=== PATIENT | male | born 1950 | race Caucasian/White ===

== ENCOUNTER 2017-08-03 02:05 | Emergency (ER) | payer SELFPAY ==
[~2017-08-03] VITALS: Ht 180.3 cm; Wt 86.4 kg
[2017-08-03] MEDS ORDERED: DiphenhydrAMINE HCL 25 MG CAPSULE PO ONE (04:45)
[2017-08-03] MEDS ORDERED: AmLODIPine BESYLATE 5 MG TABLET PO ONE ×2 (04:45→06:00)
[2017-08-03 06:01] VITALS: BP 148/80
== END 2017-08-03 06:29 | disposition home or self-care (01) ==
LOC: EMS 02:07
DX: M79.604 Pain in right leg (principal); M79.605 Pain in left leg; G89.29 Other chronic pain; I10 Essential (primary) hypertension; Z59.0 Homelessness
CPT/HCPCS: 99284

== ENCOUNTER 2017-08-03 16:46 | Inpatient (IN) | payer MEDICARE ==
[~2017-08-03] VITALS: Ht 180.3 cm; Wt 104.5 kg
[2017-08-03 17:59] LABS: BASOPHILS % (AUTO) 0.7 % (0.0-2.0); EOSINOPHILS % (AUTO) 4.6 % (1.0-6.0); HEMATOCRIT 40.4 % (41-53); HEMOGLOBIN 13.6 g/dL (13.5-17.5); LYMPHOCYTES # (AUTO) 1.3 K/uL (1.0-4.8); LYMPHOCYTES % (AUTO) 23.3 % (22.0-44.0); MEAN CORPUSCULAR HEMOGLOBIN 31.3 pg (26.0-34.0); MEAN CORPUSCULAR HGB CONC 33.6 G/dL (31.0-37.0); MEAN CORPUSCULAR VOLUME 93 fL (80-100); MONOCYTES # (AUTO) 0.6 K/uL (0.1-1.0); MONOCYTES % (AUTO) 10.6 % (2.0-9.0); NEUTROPHILS # (AUTO) 3.4 K/uL (1.8-7.7); NEUTROPHILS % (AUTO) 60.8 % (40.0-70.0); PLATELET COUNT (AUTO) 187 K/uL (150-450); RED BLOOD CELL COUNT(AUTO) 4.34 MIL/uL (4.50-5.90); RED CELL DISTRIBUTION WIDTH 13.6 % (11.5-14.5)
[2017-08-03 18:08] LABS: ANION GAP 9 mmol/L (8-16); CALCIUM, TOTAL 9.4 mg/dL (8.8-10.5); CARBON DIOXIDE 30 mmol/L (22-29); CHLORIDE 106 mmol/L (98-107); CREATININE 0.81 mg/dL (0.60-1.30); GLOMERULAR FILTR. RATE CALC > 60 mL/min (>60); GLUCOSE,RANDOM 88 mg/dL (70-110); POTASSIUM 4.1 mmol/L (3.5-5.1); SODIUM SERUM 145 mmol/L (136-145); UREA NITROGEN, BLOOD 25 mg/dL (7-18)
[2017-08-03 18:13] LABS: ALANINE AMINOTRANSFERASE 29 U/L (12-78); ALBUMIN 3.8 g/dL (3.4-5.0); ALKALINE PHOSPHATASE 64 U/L (46-116); ASPARTATE AMINOTRANSFERASE 34 U/L (15-37); BILIRUBIN,TOTAL 0.8 mg/dL (0.1-1.0); TOTAL PROTEIN, SERUM 7.4 g/dL (6.4-8.2)
[2017-08-03] MEDS ORDERED: PERMETHRIN 5% 60 GM CREAM TP ONE (18:45)
[2017-08-03] MEDS ORDERED: HALOPERIDOL 5 MG TABLET PO PRN (19:00)
[2017-08-03] MEDS ORDERED: ZOLPIDEM TARTRATE 10 MG TABLET PO PRN (19:00)
[2017-08-03] MEDS ORDERED: LORazepam 2 MG TABLET PO PRN (19:00)
[2017-08-03 21:00] VITALS: BP 153/87
[2017-08-04 06:50] VITALS: BP 140/84
[2017-08-04 08:47] VITALS: BP 152/95
[2017-08-04] MEDS: ESCITALOPRAM OXALATE 10 MG TABLET PO SCH (10:55)
[2017-08-04] MEDS: CloNIDine HCL 0.1 MG TABLET PO SCH (16:40)
[2017-08-04 21:29] VITALS: BP 157/90
[2017-08-05 08:00] VITALS: BP 153/79
[2017-08-05] MEDS: CloNIDine HCL 0.1 MG TABLET PO SCH ×2 (08:54→16:39)
[2017-08-05] MEDS: ESCITALOPRAM OXALATE 10 MG TABLET PO SCH (08:54)
[2017-08-05 20:05] VITALS: BP 148/74
[2017-08-06 08:30] VITALS: BP 145/82
[2017-08-06] MEDS: CloNIDine HCL 0.1 MG TABLET PO SCH ×2 (09:00→16:08)
[2017-08-06] MEDS: ESCITALOPRAM OXALATE 10 MG TABLET PO SCH (09:00)
[2017-08-07] MEDS: ESCITALOPRAM OXALATE 10 MG TABLET PO SCH (08:51)
[2017-08-07] MEDS: CloNIDine HCL 0.1 MG TABLET PO SCH ×2 (08:52→17:35)
[2017-08-07 09:22] VITALS: BP 146/96
[2017-08-07 20:46] VITALS: BP 147/93
[2017-08-08] MEDS: ESCITALOPRAM OXALATE 10 MG TABLET PO SCH (08:17)
[2017-08-08] MEDS: CloNIDine HCL 0.1 MG TABLET PO SCH ×2 (08:18→16:15)
[2017-08-08 08:30] VITALS: BP 128/68
[2017-08-08 17:00] VITALS: BP 145/85
[2017-08-09 05:18] VITALS: BP 139/100
[2017-08-09 08:27] VITALS: BP 144/80
[2017-08-09] MEDS: ESCITALOPRAM OXALATE 10 MG TABLET PO SCH (09:06)
[2017-08-09] MEDS: CloNIDine HCL 0.1 MG TABLET PO SCH ×2 (09:06→17:03)
[2017-08-09 16:49] VITALS: BP 128/72
[2017-08-10 08:26] VITALS: BP 125/73
[2017-08-10] MEDS: CloNIDine HCL 0.1 MG TABLET PO SCH ×2 (08:28→16:52)
[2017-08-10] MEDS: ESCITALOPRAM OXALATE 10 MG TABLET PO SCH (08:28)
[2017-08-10 16:43] VITALS: BP 121/73
[2017-08-11] MEDS: CloNIDine HCL 0.1 MG TABLET PO SCH (09:16)
[2017-08-11] MEDS: ESCITALOPRAM OXALATE 10 MG TABLET PO SCH (09:17)
[2017-08-11] MEDS ORDERED: ESCI10TA PO (10:08)
[2017-08-11] MEDS ORDERED: CLON-570 PO (10:09)
[2017-08-11 10:22] VITALS: BP 136/94
== END 2017-08-11 14:35 | disposition home or self-care (01) | DRG 885 ==
LOC: EMS 16:47 → 3EI 19:53
PROVIDERS: ADMIT Psychiatry & Neurology Psychiatry; ATTEND Psychiatry & Neurology Child & Adolescent Psychiatry
DX: F33.9 Major depressive disorder, recurrent, unspecified (principal); F41.9 Anxiety disorder, unspecified; I10 Essential (primary) hypertension; L72.3 Sebaceous cyst; R21 Rash and other nonspecific skin eruption
CPT/HCPCS: 99285; G0480

== ENCOUNTER 2017-08-28 11:32 | Inpatient (IN) | payer MEDICARE ==
[~2017-08-28] VITALS: Ht 180.3 cm; Wt 97.5 kg
[~2017-08-28 11:32] MED LIST: CLON-570 PO; ESCI10TA PO
[2017-08-28 11:55] VITALS: BP 110/70
[2017-08-28] MEDS ORDERED: HALOPERIDOL 5 MG TABLET PO PRN (12:45)
[2017-08-28 16:43] VITALS: BP 139/86
[2017-08-28] MEDS ORDERED: PNEUMOCOCCAL VACCINE POLYVALENT 0.5 ML VIAL [PPSV23] IM ONE (16:45)
[2017-08-28] MEDS ORDERED: QUEtiapine FUMARATE 25 MG TABLET PO SCH (21:00)
[2017-08-29 02:25] VITALS: BP 128/78
[2017-08-29] MEDS: ESCITALOPRAM OXALATE 20 MG TABLET PO SCH (08:32)
[2017-08-29 08:37] VITALS: BP 129/72
[2017-08-29 09:34] LABS: BASOPHILS % (AUTO) 0.8 % (0.0-2.0); EOSINOPHILS % (AUTO) 4.2 % (1.0-6.0); HEMATOCRIT 40.7 % (41-53); LYMPHOCYTES # (AUTO) 1.1 K/uL (1.0-4.8); LYMPHOCYTES % (AUTO) 29.8 % (22.0-44.0); MEAN CORPUSCULAR HEMOGLOBIN 31.7 pg (26.0-34.0); MEAN CORPUSCULAR HGB CONC 34.3 G/dL (31.0-37.0); MEAN CORPUSCULAR VOLUME 92 fL (80-100); MONOCYTES # (AUTO) 0.4 K/uL (0.1-1.0); MONOCYTES % (AUTO) 11.2 % (2.0-9.0); NEUTROPHILS # (AUTO) 2.1 K/uL (1.8-7.7); PLATELET COUNT (AUTO) 114 K/uL (150-450); RED BLOOD CELL COUNT(AUTO) 4.41 MIL/uL (4.50-5.90); RED CELL DISTRIBUTION WIDTH 13.1 % (11.5-14.5)
[2017-08-29 09:54] LABS: ALANINE AMINOTRANSFERASE 18 U/L (12-78); ALBUMIN 3.4 g/dL (3.4-5.0); ALKALINE PHOSPHATASE 47 U/L (46-116); ANION GAP 3 mmol/L (8-16); ASPARTATE AMINOTRANSFERASE 15 U/L (15-37); BILIRUBIN,TOTAL 0.5 mg/dL (0.1-1.0); CALCIUM, TOTAL 8.6 mg/dL (8.8-10.5); CARBON DIOXIDE 32 mmol/L (22-29); CHLORIDE 109 mmol/L (98-107); CHOL/HDL RATIO 3.5 (4.2-7.3); CHOLESTEROL 156 mg/dL (131-200); CREATININE 0.91 mg/dL (0.60-1.30); FREE T4 (FREE THYROXINE) 0.89 ng/dL (0.76-1.46); GLOMERULAR FILTR. RATE CALC > 60 mL/min (>60); GLUCOSE,RANDOM 79 mg/dL (70-110); HDL CHOLESTEROL 44 mg/dL (40-60); LDL CHOL (CALC.) 101 mg/dL (0-130); POTASSIUM 4.2 mmol/L (3.5-5.1); SODIUM SERUM 144 mmol/L (136-145); THYROID STIMULATING HORMONE 0.83 uIU/mL (0.36-3.74); TOTAL PROTEIN, SERUM 6.2 g/dL (6.4-8.2); TRIGLYCERIDES 57 mg/dL (15-150); UREA NITROGEN, BLOOD 17 mg/dL (7-18)
[2017-08-29 16:12] VITALS: BP 137/78
[2017-08-29] MEDS ORDERED: QUEtiapine FUMARATE 200 MG TABLET PO SCH (21:00)
[2017-08-30 00:10] VITALS: BP 115/60
[2017-08-30 08:14] VITALS: BP 142/78
[2017-08-30] MEDS: ESCITALOPRAM OXALATE 20 MG TABLET PO SCH (08:26)
[2017-08-30 16:02] VITALS: BP 124/85
[2017-08-30] MEDS: QUEtiapine FUMARATE 300 MG TABLET PO SCH (20:05)
[2017-08-31 07:08] VITALS: BP 130/90
[2017-08-31 08:02] VITALS: BP 130/78
[2017-08-31] MEDS: ESCITALOPRAM OXALATE 20 MG TABLET PO SCH (08:29)
[2017-08-31 16:04] VITALS: BP 152/93
[2017-08-31] MEDS: QUEtiapine FUMARATE 300 MG TABLET PO SCH (20:36)
[2017-09-01 00:40] VITALS: BP 108/61
[2017-09-01 08:21] VITALS: BP 121/71
[2017-09-01] MEDS: ESCITALOPRAM OXALATE 20 MG TABLET PO SCH (08:23)
[2017-09-01 16:23] VITALS: BP 135/82
[2017-09-01] MEDS: QUEtiapine FUMARATE 300 MG TABLET PO SCH (20:38)
[2017-09-02 02:11] VITALS: BP 115/70
[2017-09-02] MEDS: ESCITALOPRAM OXALATE 20 MG TABLET PO SCH (08:12)
[2017-09-02 08:20] VITALS: BP 133/85
[2017-09-02 16:14] VITALS: BP 120/84
[2017-09-02] MEDS: QUEtiapine FUMARATE 300 MG TABLET PO SCH (20:36)
[2017-09-03 01:55] VITALS: BP 118/60
[2017-09-03] MEDS: ESCITALOPRAM OXALATE 20 MG TABLET PO SCH (08:16)
[2017-09-03 08:21] VITALS: BP 120/75
[2017-09-03 16:03] VITALS: BP 123/68
[2017-09-03] MEDS: QUEtiapine FUMARATE 300 MG TABLET PO SCH (20:42)
[2017-09-04 01:24] VITALS: BP 111/60
[2017-09-04 07:37] VITALS: BP 135/81
[2017-09-04] MEDS: ESCITALOPRAM OXALATE 20 MG TABLET PO SCH (08:18)
[2017-09-04 08:21] VITALS: BP 135/81
[2017-09-04 16:27] VITALS: BP 138/84
[2017-09-04] MEDS: QUEtiapine FUMARATE 300 MG TABLET PO SCH (20:36)
[2017-09-05 07:06] VITALS: BP 130/86
[2017-09-05 08:29] VITALS: BP 137/67
[2017-09-05] MEDS: ESCITALOPRAM OXALATE 20 MG TABLET PO SCH (08:31)
[2017-09-05 16:14] VITALS: BP 135/84
[2017-09-05] MEDS: QUEtiapine FUMARATE 300 MG TABLET PO SCH (20:38)
[2017-09-06 05:15] VITALS: BP 130/81
[2017-09-06 08:05] VITALS: BP 132/76
[2017-09-06] MEDS: ESCITALOPRAM OXALATE 20 MG TABLET PO SCH (08:20)
[2017-09-06 16:02] VITALS: BP 135/89
[2017-09-06] MEDS: QUEtiapine FUMARATE 300 MG TABLET PO SCH (20:32)
[2017-09-06] MEDS: ZOLPIDEM TARTRATE 10 MG TABLET PO PRN (21:38)
[2017-09-07 06:14] VITALS: BP 134/62
[2017-09-07 08:22] VITALS: BP 124/63
[2017-09-07] MEDS: ESCITALOPRAM OXALATE 20 MG TABLET PO SCH (08:28)
[2017-09-07 16:07] VITALS: BP 113/70
[2017-09-07] MEDS: QUEtiapine FUMARATE 300 MG TABLET PO SCH (20:03)
[2017-09-07] MEDS: ZOLPIDEM TARTRATE 10 MG TABLET PO PRN (20:22)
[2017-09-08 06:18] VITALS: BP 128/81
[2017-09-08 08:29] VITALS: BP 109/60
[2017-09-08] MEDS: ESCITALOPRAM OXALATE 20 MG TABLET PO SCH (08:42)
[2017-09-08 16:02] VITALS: BP 133/87
[2017-09-08] MEDS: QUEtiapine FUMARATE 300 MG TABLET PO SCH (20:20)
[2017-09-08] MEDS: ZOLPIDEM TARTRATE 10 MG TABLET PO PRN (20:55)
[2017-09-09 04:56] VITALS: BP 128/83
[2017-09-09] MEDS: ESCITALOPRAM OXALATE 20 MG TABLET PO SCH (08:09)
[2017-09-09 08:10] VITALS: BP 133/74
[2017-09-09 16:05] VITALS: BP 114/81
[2017-09-09] MEDS: QUEtiapine FUMARATE 300 MG TABLET PO SCH (20:29)
[2017-09-09] MEDS: ZOLPIDEM TARTRATE 10 MG TABLET PO PRN (21:00)
[2017-09-10 05:54] VITALS: BP 118/62
[2017-09-10] MEDS: ESCITALOPRAM OXALATE 20 MG TABLET PO SCH (08:12)
[2017-09-10 08:58] VITALS: BP 129/74
[2017-09-10 16:46] VITALS: BP 131/85
[2017-09-10] MEDS: QUEtiapine FUMARATE 300 MG TABLET PO SCH (20:31)
[2017-09-10] MEDS: ZOLPIDEM TARTRATE 10 MG TABLET PO PRN (21:07)
[2017-09-11 07:17] VITALS: BP 144/96
[2017-09-11 08:00] VITALS: BP 133/91
[2017-09-11] MEDS: ESCITALOPRAM OXALATE 20 MG TABLET PO SCH (08:03)
[2017-09-11] MEDS: QUEtiapine FUMARATE 300 MG TABLET PO SCH ×2 (08:03→16:36)
[2017-09-11 16:10] VITALS: BP 115/76
[2017-09-12 06:29] VITALS: BP 116/77
[2017-09-12] MEDS: QUEtiapine FUMARATE 300 MG TABLET PO SCH ×2 (08:01→16:17)
[2017-09-12] MEDS: ESCITALOPRAM OXALATE 20 MG TABLET PO SCH (08:01)
[2017-09-12 08:18] VITALS: BP 143/73
[2017-09-12 16:09] VITALS: BP 123/65
[2017-09-13 00:44] VITALS: BP 120/75
[2017-09-13] MEDS: ESCITALOPRAM OXALATE 20 MG TABLET PO SCH (08:03)
[2017-09-13] MEDS: QUEtiapine FUMARATE 300 MG TABLET PO SCH ×2 (08:03→16:11)
[2017-09-13 08:16] VITALS: BP 119/87
[2017-09-13 16:07] VITALS: BP 120/80
[2017-09-13] MEDS: ZOLPIDEM TARTRATE 10 MG TABLET PO PRN (20:33)
[2017-09-14] MEDS: LORazepam 2 MG TABLET PO PRN (01:58)
[2017-09-14 02:00] VITALS: BP 134/77
[2017-09-14] MEDS: ESCITALOPRAM OXALATE 20 MG TABLET PO SCH (08:19)
[2017-09-14] MEDS: QUEtiapine FUMARATE 300 MG TABLET PO SCH ×2 (08:19→16:07)
[2017-09-14 08:27] VITALS: BP 113/71
[2017-09-14 16:06] VITALS: BP 130/76
[2017-09-15 00:07] VITALS: BP 118/68
[2017-09-15] MEDS: QUEtiapine FUMARATE 300 MG TABLET PO SCH (08:06)
[2017-09-15] MEDS: ESCITALOPRAM OXALATE 20 MG TABLET PO SCH (08:06)
[2017-09-15 08:08] VITALS: BP 136/72
[2017-09-15] MEDS ORDERED: ARIPiprazole 10 MG TABLET PO SCH (10:45)
[2017-09-15] MEDS ORDERED: ARIPiprazole 10 MG TABLET PO ONE (10:45)
[2017-09-15 16:16] VITALS: BP 127/68
[2017-09-15] MEDS ORDERED: TraZODone HCL 100 MG TABLET PO SCH (21:00)
[2017-09-16] VITALS: BP 124/89
[2017-09-16 00:01] VITALS: BP 124/89
[2017-09-16] MEDS: ZOLPIDEM TARTRATE 10 MG TABLET PO PRN (00:06)
[2017-09-16 03:42] VITALS: BP 131/88
[2017-09-16] MEDS: LORazepam 2 MG TABLET PO PRN (03:52)
[2017-09-16] MEDS: ESCITALOPRAM OXALATE 20 MG TABLET PO SCH (08:09)
[2017-09-16] MEDS: ARIPiprazole 10 MG TABLET PO SCH (08:09)
[2017-09-16 08:29] VITALS: BP 129/73
[2017-09-16 16:02] VITALS: BP 130/86
[2017-09-16] MEDS: TraZODone HCL 100 MG TABLET PO SCH (20:06)
[2017-09-17 04:04] VITALS: BP 136/84
[2017-09-17 08:00] VITALS: BP 123/76
[2017-09-17] MEDS: ARIPiprazole 10 MG TABLET PO SCH (08:01)
[2017-09-17] MEDS: ESCITALOPRAM OXALATE 20 MG TABLET PO SCH (08:01)
[2017-09-17] MEDS ORDERED: ARIPiprazole LAUROXIL ER SUSPENSION 882 MG/3.2 ML SYRINGE IM SCH (09:00)
[2017-09-17 16:02] VITALS: BP 124/64
[2017-09-17] MEDS: TraZODone HCL 100 MG TABLET PO SCH (20:45)
[2017-09-18 01:35] VITALS: BP 103/69
[2017-09-18] MEDS: ARIPiprazole 10 MG TABLET PO SCH (08:05)
[2017-09-18] MEDS: ESCITALOPRAM OXALATE 20 MG TABLET PO SCH (08:05)
[2017-09-18 08:09] VITALS: BP 123/85
[2017-09-18 16:02] VITALS: BP 129/67
[2017-09-18] MEDS: TraZODone HCL 100 MG TABLET PO SCH (20:43)
[2017-09-19 00:15] VITALS: BP 107/72
[2017-09-19] MEDS: ZOLPIDEM TARTRATE 10 MG TABLET PO PRN (01:27)
[2017-09-19] MEDS: ESCITALOPRAM OXALATE 20 MG TABLET PO SCH (08:05)
[2017-09-19] MEDS: ARIPiprazole 10 MG TABLET PO SCH (08:05)
[2017-09-19 08:23] VITALS: BP 127/76
[2017-09-19] MEDS ORDERED: ARIP882S IM (10:26)
[2017-09-19] MEDS ORDERED: TRAZ-147 PO (10:26)
[2017-09-19] MEDS ORDERED: ARIP10TA8 PO (10:26)
== END 2017-09-19 11:50 | disposition home or self-care (01) | DRG 885 ==
LOC: B2X 12:46
PROVIDERS: ADMIT Psychiatry & Neurology Psychiatry; ATTEND Psychiatry & Neurology Psychiatry
DX: F33.2 Major depressive disorder, recurrent severe without psychotic features (principal); R45.851 Suicidal ideations; Z28.21 Immunization not carried out because of patient refusal; I10 Essential (primary) hypertension; L72.3 Sebaceous cyst; F60.3 Borderline personality disorder; F41.9 Anxiety disorder, unspecified; E66.3 Overweight; Z63.9 Problem related to primary support group, unspecified; Z59.9 Problem related to housing and economic circumstances, unspecified; Z79.899 Other long term (current) drug therapy; Z91.5 Personal history of self-harm; Z68.30 Body mass index [BMI] 30.0-30.9, adult
CPT/HCPCS: 83036; 84439; 84443; 87081

== ENCOUNTER 2017-09-22 10:34 | Inpatient (IN) | payer MEDICARE ==
[~2017-09-22] VITALS: Ht 180.3 cm; Wt 98.7 kg
[~2017-09-22 10:34] MED LIST changes: +ARIP10TA8 PO; +ARIP882S IM; +ARIPiprazole 10 MG TABLET PO SCH; -CLON-570 PO; +TRAZ-147 PO
[2017-09-22] MEDS ORDERED: ESCI20TA PO (12:01)
[2017-09-22 12:44] VITALS: BP 115/71
[2017-09-22 13:00] VITALS: BP 126/76
[2017-09-22] MEDS ORDERED: PNEUMOCOCCAL VACCINE POLYVALENT 0.5 ML VIAL [PPSV23] IM ONE (13:45)
[2017-09-22 16:12] VITALS: BP 120/78
[2017-09-22] MEDS: CloNIDine HCL 0.1 MG TABLET PO SCH (16:51)
[2017-09-22] MEDS: TraZODone HCL 100 MG TABLET PO SCH (20:28)
[2017-09-22] MEDS: ZOLPIDEM TARTRATE 10 MG TABLET PO PRN (21:07)
[2017-09-23 00:02] VITALS: BP 118/65
[2017-09-23 08:18] VITALS: BP 111/66
[2017-09-23] MEDS: CloNIDine HCL 0.1 MG TABLET PO SCH ×2 (08:21→16:31)
[2017-09-23] MEDS: ESCITALOPRAM OXALATE 20 MG TABLET PO SCH (08:21)
[2017-09-23 08:34] LABS: BASOPHILS % (AUTO) 0.6 % (0.0-2.0); EOSINOPHILS % (AUTO) 4.7 % (1.0-6.0); HEMATOCRIT 40.4 % (41-53); LYMPHOCYTES # (AUTO) 1.2 K/uL (1.0-4.8); LYMPHOCYTES % (AUTO) 25.2 % (22.0-44.0); MEAN CORPUSCULAR HEMOGLOBIN 32.2 pg (26.0-34.0); MEAN CORPUSCULAR HGB CONC 34.7 G/dL (31.0-37.0); MEAN CORPUSCULAR VOLUME 93 fL (80-100); MONOCYTES # (AUTO) 0.5 K/uL (0.1-1.0); MONOCYTES % (AUTO) 10.4 % (2.0-9.0); NEUTROPHILS # (AUTO) 2.8 K/uL (1.8-7.7); NEUTROPHILS % (AUTO) 59.1 % (40.0-70.0); PLATELET COUNT (AUTO) 170 K/uL (150-450); RED BLOOD CELL COUNT(AUTO) 4.36 MIL/uL (4.50-5.90); RED CELL DISTRIBUTION WIDTH 13.8 % (11.5-14.5)
[2017-09-23 09:17] LABS: ALANINE AMINOTRANSFERASE 27 U/L (12-78); ALBUMIN 3.4 g/dL (3.4-5.0); ALKALINE PHOSPHATASE 64 U/L (46-116); ANION GAP 2 mmol/L (8-16); ASPARTATE AMINOTRANSFERASE 27 U/L (15-37); BILIRUBIN,TOTAL 0.5 mg/dL (0.1-1.0); CALCIUM, TOTAL 8.9 mg/dL (8.8-10.5); CARBON DIOXIDE 34 mmol/L (22-29); CHLORIDE 109 mmol/L (98-107); CHOL/HDL RATIO 3.3 (4.2-7.3); CHOLESTEROL 139 mg/dL (131-200); CREATININE 0.76 mg/dL (0.60-1.30); FREE T4 (FREE THYROXINE) 0.85 ng/dL (0.76-1.46); GLOMERULAR FILTR. RATE CALC > 60 mL/min (>60); GLUCOSE,RANDOM 84 mg/dL (70-110); HDL CHOLESTEROL 42 mg/dL (40-60); LDL CHOL (CALC.) 81 mg/dL (0-130); POTASSIUM 4.8 mmol/L (3.5-5.1); SODIUM SERUM 145 mmol/L (136-145); THYROID STIMULATING HORMONE 2.48 uIU/mL (0.36-3.74); TOTAL PROTEIN, SERUM 6.4 g/dL (6.4-8.2); TRIGLYCERIDES 80 mg/dL (15-150); UREA NITROGEN, BLOOD 17 mg/dL (7-18)
[2017-09-23 16:05] VITALS: BP 138/73
[2017-09-23] MEDS: TraZODone HCL 100 MG TABLET PO SCH (20:39)
[2017-09-23] MEDS: ZOLPIDEM TARTRATE 10 MG TABLET PO PRN (21:16)
[2017-09-24 01:54] VITALS: BP 120/64
[2017-09-24] MEDS: CloNIDine HCL 0.1 MG TABLET PO SCH ×2 (08:03→16:34)
[2017-09-24] MEDS: ESCITALOPRAM OXALATE 20 MG TABLET PO SCH (08:03)
[2017-09-24 08:09] VITALS: BP 142/72
[2017-09-24 16:10] VITALS: BP 131/82
[2017-09-24] MEDS: TraZODone HCL 100 MG TABLET PO SCH (20:34)
[2017-09-24] MEDS: ZOLPIDEM TARTRATE 10 MG TABLET PO PRN (21:11)
[2017-09-25 05:45] VITALS: BP 132/72
[2017-09-25] MEDS: ESCITALOPRAM OXALATE 20 MG TABLET PO SCH (08:19)
[2017-09-25] MEDS: CloNIDine HCL 0.1 MG TABLET PO SCH ×2 (08:19→16:17)
[2017-09-25 08:31] VITALS: BP 121/65
[2017-09-25 16:07] VITALS: BP 129/86
[2017-09-25] MEDS: TraZODone HCL 100 MG TABLET PO SCH (20:08)
[2017-09-25] MEDS: ZOLPIDEM TARTRATE 10 MG TABLET PO PRN (21:40)
[2017-09-25] MEDS: HALOPERIDOL 5 MG TABLET PO PRN (23:54)
[2017-09-25] MEDS: LORazepam 2 MG TABLET PO PRN (23:54)
[2017-09-26 00:35] VITALS: BP 140/84
[2017-09-26] MEDS: ESCITALOPRAM OXALATE 20 MG TABLET PO SCH (08:12)
[2017-09-26] MEDS: CloNIDine HCL 0.1 MG TABLET PO SCH ×2 (08:13→16:11)
[2017-09-26 08:16] VITALS: BP 146/88
[2017-09-26 12:36] VITALS: BP 129/76
[2017-09-26 16:02] VITALS: BP 129/74
[2017-09-26] MEDS: TraZODone HCL 100 MG TABLET PO SCH (20:03)
[2017-09-27 00:15] VITALS: BP 146/78
[2017-09-27] MEDS: LORazepam 2 MG TABLET PO PRN (00:19)
[2017-09-27] MEDS: CloNIDine HCL 0.1 MG TABLET PO SCH ×2 (08:11→16:01)
[2017-09-27] MEDS: ESCITALOPRAM OXALATE 20 MG TABLET PO SCH (08:11)
[2017-09-27 08:27] VITALS: BP 122/72
[2017-09-27] MEDS ORDERED: IBUPROFEN 600 MG TABLET PO PRN (11:00)
[2017-09-27 11:30] VITALS: BP 118/72
[2017-09-27] MEDS: ACETAMINOPHEN 325 MG TABLET PO PRN (11:30)
[2017-09-27 16:29] VITALS: BP 117/63
[2017-09-27] MEDS: TraZODone HCL 100 MG TABLET PO SCH (20:11)
[2017-09-28 05:22] VITALS: BP 131/81
[2017-09-28] MEDS: ESCITALOPRAM OXALATE 20 MG TABLET PO SCH (08:02)
[2017-09-28] MEDS: CloNIDine HCL 0.1 MG TABLET PO SCH ×2 (08:02→16:13)
[2017-09-28 08:31] VITALS: BP 124/82
[2017-09-28 16:16] VITALS: BP 119/62
[2017-09-28] MEDS: TraZODone HCL 100 MG TABLET PO SCH (20:10)
[2017-09-29 03:22] VITALS: BP 125/75
[2017-09-29] MEDS: LORazepam 2 MG TABLET PO PRN ×2 (03:24→21:22)
[2017-09-29 08:00] VITALS: BP 125/74
[2017-09-29] MEDS: ESCITALOPRAM OXALATE 20 MG TABLET PO SCH (08:08)
[2017-09-29] MEDS: CloNIDine HCL 0.1 MG TABLET PO SCH ×2 (08:08→16:35)
[2017-09-29 12:48] VITALS: BP 122/70
[2017-09-29] MEDS: ACETAMINOPHEN 325 MG TABLET PO PRN (12:48)
[2017-09-29 16:18] VITALS: BP_SYST 104; BP_SYST 134; BP_DIAS 64; BP_DIAS 68
[2017-09-29] MEDS: TraZODone HCL 100 MG TABLET PO SCH (20:34)
[2017-09-30 00:05] VITALS: BP 130/71
[2017-09-30] MEDS: CloNIDine HCL 0.1 MG TABLET PO SCH ×2 (08:21→16:33)
[2017-09-30] MEDS: ESCITALOPRAM OXALATE 20 MG TABLET PO SCH (08:21)
[2017-09-30 08:22] VITALS: BP 127/60
[2017-09-30 10:05] VITALS: BP 120/62
[2017-09-30] MEDS: ACETAMINOPHEN 325 MG TABLET PO PRN (10:05)
[2017-09-30 16:04] VITALS: BP 136/86
[2017-09-30] MEDS: TraZODone HCL 100 MG TABLET PO SCH (20:30)
[2017-09-30] MEDS: LORazepam 2 MG TABLET PO PRN (21:08)
[2017-10-01 01:12] VITALS: BP 109/75
[2017-10-01 08:10] VITALS: BP 131/79
[2017-10-01] MEDS: ESCITALOPRAM OXALATE 20 MG TABLET PO SCH (08:38)
[2017-10-01] MEDS: CloNIDine HCL 0.1 MG TABLET PO SCH ×2 (08:38→16:30)
[2017-10-01] MEDS: ACETAMINOPHEN 325 MG TABLET PO PRN (09:22)
[2017-10-01 16:09] VITALS: BP 132/72
[2017-10-01] MEDS: TraZODone HCL 100 MG TABLET PO SCH (20:29)
[2017-10-01] MEDS: LORazepam 2 MG TABLET PO PRN (20:54)
[2017-10-02 04:10] VITALS: BP 138/83
[2017-10-02] MEDS: ESCITALOPRAM OXALATE 20 MG TABLET PO SCH (08:11)
[2017-10-02] MEDS: CloNIDine HCL 0.1 MG TABLET PO SCH ×2 (08:11→16:30)
[2017-10-02 08:16] VITALS: BP 115/67
[2017-10-02 16:09] VITALS: BP 131/85
[2017-10-02] MEDS: TraZODone HCL 100 MG TABLET PO SCH (20:32)
[2017-10-03 03:55] VITALS: BP 138/80
[2017-10-03] MEDS: ESCITALOPRAM OXALATE 20 MG TABLET PO SCH (08:12)
[2017-10-03] MEDS: CloNIDine HCL 0.1 MG TABLET PO SCH ×2 (08:12→16:27)
[2017-10-03 08:25] VITALS: BP 124/62
[2017-10-03] MEDS: ACETAMINOPHEN 325 MG TABLET PO PRN (09:30)
[2017-10-03] MEDS ORDERED: CLON-570 PO (12:40)
[2017-10-03 16:04] VITALS: BP 131/80
[2017-10-03] MEDS: TraZODone HCL 100 MG TABLET PO SCH (20:08)
[2017-10-03] MEDS: HALOPERIDOL 5 MG TABLET PO PRN (21:05)
[2017-10-04 00:05] VITALS: BP 116/68
[2017-10-04] MEDS: ESCITALOPRAM OXALATE 20 MG TABLET PO SCH (08:05)
[2017-10-04] MEDS: CloNIDine HCL 0.1 MG TABLET PO SCH ×2 (08:05→16:36)
[2017-10-04 08:21] VITALS: BP 120/75
[2017-10-04 16:03] VITALS: BP 121/69
[2017-10-04] MEDS: TraZODone HCL 100 MG TABLET PO SCH (20:37)
[2017-10-05 00:08] VITALS: BP 115/64
[2017-10-05 08:19] VITALS: BP 120/72
[2017-10-05] MEDS: ESCITALOPRAM OXALATE 20 MG TABLET PO SCH (08:21)
[2017-10-05] MEDS: CloNIDine HCL 0.1 MG TABLET PO SCH ×2 (08:21→16:36)
[2017-10-05 16:07] VITALS: BP 117/78
[2017-10-05] MEDS: TraZODone HCL 100 MG TABLET PO SCH (20:34)
[2017-10-06 03:10] VITALS: BP 100/65
[2017-10-06] MEDS: ACETAMINOPHEN 325 MG TABLET PO PRN (03:12)
[2017-10-06] MEDS: ESCITALOPRAM OXALATE 20 MG TABLET PO SCH (08:11)
[2017-10-06] MEDS: CloNIDine HCL 0.1 MG TABLET PO SCH (08:11)
[2017-10-06 08:33] VITALS: BP 124/69
== END 2017-10-06 10:00 | disposition home or self-care (01) | DRG 885 ==
LOC: B2S 12:35 → B2X 15:54
PROVIDERS: ADMIT Psychiatry & Neurology Psychiatry; ATTEND Psychiatry & Neurology Psychiatry
DX: F33.2 Major depressive disorder, recurrent severe without psychotic features (principal); R45.851 Suicidal ideations; I10 Essential (primary) hypertension; F60.3 Borderline personality disorder; L72.3 Sebaceous cyst; Z91.5 Personal history of self-harm; Z28.21 Immunization not carried out because of patient refusal; Z79.899 Other long term (current) drug therapy
CPT/HCPCS: 84439; 84443; 87081

== ENCOUNTER 2017-10-12 12:51 | Inpatient (IN) | payer MEDICARE, SELFPAY ==
[~2017-10-12] VITALS: Ht 180.3 cm; Wt 98.4 kg
[~2017-10-12 12:51] MED LIST changes: -ARIP10TA8 PO; -ARIPiprazole 10 MG TABLET PO SCH; +CLON-570 PO; -ESCI10TA PO; +ESCI20TA PO; -TRAZ-147 PO; +TRAZ-220 PO
[2017-10-12 14:48] VITALS: BP 136/71
[2017-10-12] MEDS ORDERED: HALOPERIDOL 5 MG TABLET PO PRN (15:00)
[2017-10-12] MEDS ORDERED: ZOLPIDEM TARTRATE 10 MG TABLET PO PRN (15:00)
[2017-10-12] MEDS ORDERED: LORazepam 2 MG TABLET PO PRN (15:00)
[2017-10-12 16:16] VITALS: BP 150/80
[2017-10-12] MEDS ORDERED: PETROLATUM,WHITE 71 GM JELLY TP PRN (16:30)
[2017-10-12] MEDS ORDERED: DOCUSATE SODIUM 100 MG CAPSULE PO PRN (16:30)
[2017-10-12] MEDS ORDERED: MAGNESIUM HYDROXIDE SUSPENSION 30 ML UDCUP PO PRN (16:30)
[2017-10-12] MEDS ORDERED: IBUPROFEN 400 MG TABLET PO PRN (16:30)
[2017-10-12] MEDS ORDERED: MAG HYDROX/AL HYDROX/SIMETH ES 30 ML SUSPENSION UDCUP PO PRN (16:30)
[2017-10-12] MEDS ORDERED: ONDANSETRON HCL 4 MG TABLET PO PRN (16:30)
[2017-10-12] MEDS ORDERED: ALBUTEROL SULFATE HFA 90 MCG/PUFF 8 GM INHALER IH PRN (16:30)
[2017-10-12] MEDS: CloNIDine HCL 0.1 MG TABLET PO SCH (16:49)
[2017-10-12] MEDS ORDERED: NYSTATIN 30 GM CREAM TP SCH (17:00)
[2017-10-12 18:16] VITALS: BP 113/81
[2017-10-13] MEDS ORDERED: PNEUMOCOCCAL VACCINE POLYVALENT 0.5 ML VIAL [PPSV23] IM ONE (01:15)
[2017-10-13 01:44] VITALS: BP 120/74
[2017-10-13 08:16] LABS: BASOPHILS % (AUTO) 0.7 % (0.0-2.0); EOSINOPHILS % (AUTO) 5.2 % (1.0-6.0); HEMATOCRIT 37.2 % (41-53); HEMOGLOBIN 12.9 g/dL (13.5-17.5); LYMPHOCYTES % (AUTO) 22.9 % (22.0-44.0); MEAN CORPUSCULAR HGB CONC 34.8 G/dL (31.0-37.0); MEAN CORPUSCULAR VOLUME 92 fL (80-100); MONOCYTES # (AUTO) 0.5 K/uL (0.1-1.0); MONOCYTES % (AUTO) 10.6 % (2.0-9.0); NEUTROPHILS # (AUTO) 2.8 K/uL (1.8-7.7); NEUTROPHILS % (AUTO) 60.6 % (40.0-70.0); PLATELET COUNT (AUTO) 136 K/uL (150-450); RED BLOOD CELL COUNT(AUTO) 4.04 MIL/uL (4.50-5.90); RED CELL DISTRIBUTION WIDTH 13.7 % (11.5-14.5)
[2017-10-13 08:20] VITALS: BP 106/60
[2017-10-13 08:39] LABS: APPEARANCE,URINE TURBID (CLEAR); GLUCOSE, URINE (UA) NEGATIVE (NEGATIVE); KETONES,URINE TRACE mg/dL (NEGATIVE); LEUKOCYTE ESTERASE ,URINE TRACE (NEGATIVE); NITRATE,URINE NEGATIVE (NEGATIVE); OCCULT BLOOD,URINE NEGATIVE (NEGATIVE); PH,URINE 5.5 (5.0-8.0); PROTEIN,URINE POS 1+ (NEGATIVE); UROBILINOGEN,URINE 0.2 mg/dL (<=1.0)
[2017-10-13 08:46] LABS: ALANINE AMINOTRANSFERASE 29 U/L (12-78); ALBUMIN 3.1 g/dL (3.4-5.0); ALKALINE PHOSPHATASE 63 U/L (46-116); ANION GAP 5 mmol/L (8-16); ASPARTATE AMINOTRANSFERASE 37 U/L (15-37); BILIRUBIN,TOTAL 0.7 mg/dL (0.1-1.0); CALCIUM, TOTAL 8.5 mg/dL (8.8-10.5); CARBON DIOXIDE 31 mmol/L (22-29); CHLORIDE 108 mmol/L (98-107); CHOL/HDL RATIO 2.6 (4.2-7.3); CHOLESTEROL 114 mg/dL (131-200); CREATININE 0.79 mg/dL (0.60-1.30); FREE T4 (FREE THYROXINE) 0.97 ng/dL (0.76-1.46); GLOMERULAR FILTR. RATE CALC > 60 mL/min (>60); GLUCOSE,RANDOM 85 mg/dL (70-110); HDL CHOLESTEROL 44 mg/dL (40-60); LDL CHOL (CALC.) 61 mg/dL (0-130); POTASSIUM 3.9 mmol/L (3.5-5.1); SODIUM SERUM 144 mmol/L (136-145); THYROID STIMULATING HORMONE 0.71 uIU/mL (0.36-3.74); TOTAL PROTEIN, SERUM 6.1 g/dL (6.4-8.2); TRIGLYCERIDES 46 mg/dL (15-150); UREA NITROGEN, BLOOD 29 mg/dL (7-18)
[2017-10-13 08:55] VITALS: BP 122/67
[2017-10-13 08:56] LABS: AMPHET/METH SCREEN,URINE NEGATIVE (NEGATIVE); BARBITURATE SCREEN, URINE NEGATIVE (NEGATIVE); BENZODIAZEPINES SCREEN,URINE NEGATIVE (NEGATIVE); CANNABINOID SCREEN,URINE NEGATIVE (NEGATIVE); COCAINE SCREEN,URINE NEGATIVE (NEGATIVE); METHADONE SCREEN, URINE NEGATIVE (NEGATIVE); OPIATE SCREEN,URINE NEGATIVE (NEGATIVE)
[2017-10-13 08:57] LABS: PHENCYCLIDINE SCREEN,URINE NEGATIVE (NEGATIVE)
[2017-10-13] MEDS: CloNIDine HCL 0.1 MG TABLET PO SCH ×2 (08:57→16:43)
[2017-10-13] MEDS: NICOTINE 14 MG/24 HOUR PATCH TD SCH (08:58)
[2017-10-13] MEDS: NYSTATIN 30 GM CREAM TP SCH ×2 (08:58→16:43)
[2017-10-13 09:09] LABS: BILIRUBIN,URINE PRELIM. POSITIVE (NEGATIVE)
[2017-10-13 09:17] LABS: BACTERIA,URINE Few /HPF (None Seen); RBC,URINE None Seen /HPF (0-2); SQUAMOUS EPITHELIAL CELL,UR Few /LPF (None Seen)
[2017-10-13 09:18] LABS: AMORPHOUS SEDIMENT,UR Many /LPF (None Seen); CALCIUM OXALATE CRYSTALS,UR Moderate /LPF (None Seen)
[2017-10-13 16:07] VITALS: BP 122/67
[2017-10-13] MEDS: FERROUS SULFATE 325 MG EC TABLET PO SCH (16:43)
[2017-10-13] MEDS: TraZODone HCL 100 MG TABLET PO SCH (20:40)
[2017-10-14 04:20] VITALS: BP 130/76
[2017-10-14] MEDS: FERROUS SULFATE 325 MG EC TABLET PO SCH ×3 (07:02→16:18)
[2017-10-14 08:17] VITALS: BP 127/62
[2017-10-14] MEDS: NICOTINE 14 MG/24 HOUR PATCH TD SCH (09:00)
[2017-10-14] MEDS: CloNIDine HCL 0.1 MG TABLET PO SCH ×2 (09:14→16:18)
[2017-10-14] MEDS: ESCITALOPRAM OXALATE 20 MG TABLET PO SCH (09:14)
[2017-10-14] MEDS: NYSTATIN 30 GM CREAM TP SCH ×2 (09:15→16:18)
[2017-10-14 11:06] VITALS: BP 112/75
[2017-10-14] MEDS: ACETAMINOPHEN 325 MG TABLET PO PRN (11:10)
[2017-10-14 16:09] VITALS: BP 123/75
[2017-10-14] MEDS: TraZODone HCL 100 MG TABLET PO SCH (20:18)
[2017-10-15] MEDS: FERROUS SULFATE 325 MG EC TABLET PO SCH ×3 (07:08→16:42)
[2017-10-15 08:06] VITALS: BP 123/67
[2017-10-15] MEDS: CloNIDine HCL 0.1 MG TABLET PO SCH ×2 (08:16→16:34)
[2017-10-15] MEDS: NYSTATIN 30 GM CREAM TP SCH ×2 (08:16→16:42)
[2017-10-15] MEDS: ESCITALOPRAM OXALATE 20 MG TABLET PO SCH (08:16)
[2017-10-15] MEDS: NICOTINE 14 MG/24 HOUR PATCH TD SCH (08:27)
[2017-10-15 16:07] VITALS: BP 116/62
[2017-10-15] MEDS: TraZODone HCL 100 MG TABLET PO SCH (20:40)
[2017-10-16 00:10] VITALS: BP 123/61
[2017-10-16] MEDS: FERROUS SULFATE 325 MG EC TABLET PO SCH ×3 (06:33→16:36)
[2017-10-16] MEDS: CloNIDine HCL 0.1 MG TABLET PO SCH ×2 (08:11→16:36)
[2017-10-16] MEDS: ESCITALOPRAM OXALATE 20 MG TABLET PO SCH (08:11)
[2017-10-16] MEDS: NYSTATIN 30 GM CREAM TP SCH ×2 (08:12→16:37)
[2017-10-16 08:35] VITALS: BP 119/66
[2017-10-16 16:08] VITALS: BP 125/69
[2017-10-16] MEDS: TraZODone HCL 100 MG TABLET PO SCH (20:38)
[2017-10-17] MEDS: FERROUS SULFATE 325 MG EC TABLET PO SCH (06:47)
[2017-10-17 07:18] VITALS: BP 120/73
[2017-10-17 08:02] VITALS: BP 132/75
[2017-10-17] MEDS: ESCITALOPRAM OXALATE 20 MG TABLET PO SCH (08:05)
[2017-10-17] MEDS: CloNIDine HCL 0.1 MG TABLET PO SCH (08:05)
[2017-10-17] MEDS: NYSTATIN 30 GM CREAM TP SCH (08:05)
[2017-10-17] MEDS ORDERED: FERR-89 PO (08:13)
[2017-10-17] MEDS ORDERED: ARIPiprazole LAUROXIL ER SUSPENSION 882 MG/3.2 ML SYRINGE IM SCH (09:00)
[2017-10-17] MEDS: ACETAMINOPHEN 325 MG TABLET PO PRN (09:41)
== END 2017-10-17 10:30 | disposition home or self-care (01) | DRG 885 ==
LOC: B2X 15:22
PROVIDERS: ADMIT Psychiatry & Neurology Psychiatry; ATTEND Psychiatry & Neurology Psychiatry
DX: F33.3 Major depressive disorder, recurrent, severe with psychotic symptoms (principal); I10 Essential (primary) hypertension; F60.3 Borderline personality disorder; D64.9 Anemia, unspecified; D69.6 Thrombocytopenia, unspecified; F10.10 Alcohol abuse, uncomplicated; R45.84 Anhedonia; R45.87 Impulsiveness; F14.90 Cocaine use, unspecified, uncomplicated; F11.90 Opioid use, unspecified, uncomplicated; Z71.41 Alcohol abuse counseling and surveillance of alcoholic; Z59.0 Homelessness; Z71.51 Drug abuse counseling and surveillance of drug abuser; Z79.899 Other long term (current) drug therapy; Z91.5 Personal history of self-harm
CPT/HCPCS: 80307; 83036; 84439; 84443; 87081

== ENCOUNTER 2018-02-16 10:35 | Emergency (ER) | payer MEDICARE, SELFPAY ==
[~2018-02-16] VITALS: Ht 182.9 cm; Wt 90.9 kg
[~2018-02-16 10:35] MED LIST changes: -ARIP882S IM; +FERR-89 PO
[2018-02-16] MEDS ORDERED: IBUPROFEN 600 MG TABLET PO ONE (11:45)
[2018-02-16] MEDS ORDERED: CEPHALEXIN MONOHYDRATE 500 MG CAPSULE PO ONE (11:45)
[2018-02-16] MEDS ORDERED: SULFAMETHOX/TRIMETH DS 800-160 MG/TABLET PO ONE (11:45)
[2018-02-16 12:42] VITALS: BP 132/74
== END 2018-02-16 12:49 | disposition home or self-care (01) ==
LOC: EMS 10:37
DX: L03.011 Cellulitis of right finger (principal); F32.9 Major depressive disorder, single episode, unspecified; I10 Essential (primary) hypertension; F03.90 Unspecified dementia, unspecified severity, without behavioral disturbance, psychotic disturbance, mood disturbance, and anxiety; Z79.899 Other long term (current) drug therapy

== ENCOUNTER 2018-02-17 05:09 | Emergency (ER) | payer MEDICARE ==
[~2018-02-17] VITALS: Ht 182.9 cm; Wt 90.9 kg
[2018-02-17 05:18] VITALS: BP 138/73
[2018-02-17] MEDS ORDERED: IBUPROFEN 800 MG TABLET PO ONE (05:30)
[2018-02-17] MEDS ORDERED: CEPHALEXIN MONOHYDRATE 500 MG CAPSULE PO ONE (05:30)
[2018-02-17] MEDS ORDERED: SULFAMETHOX/TRIMETH DS 800-160 MG/TABLET PO ONE (05:30)
== END 2018-02-17 06:04 | disposition home or self-care (01) ==
LOC: EMS 05:12
DX: L03.011 Cellulitis of right finger (principal); F03.90 Unspecified dementia, unspecified severity, without behavioral disturbance, psychotic disturbance, mood disturbance, and anxiety; F32.9 Major depressive disorder, single episode, unspecified; I10 Essential (primary) hypertension; Z79.899 Other long term (current) drug therapy

== ENCOUNTER 2018-02-20 14:18 | Emergency (ER) | payer MEDICARE ==
[~2018-02-20] VITALS: Ht 182.9 cm; Wt 90.5 kg
[2018-02-20] MEDS ORDERED: 0.9% SODIUM CHLORIDE 10 ML SYRINGE IVP PRN (16:30)
[2018-02-20 17:13] LABS: EOSINOPHILS % (AUTO) 3.8 % (1.0-6.0); HEMATOCRIT 40.5 % (41-53); HEMOGLOBIN 13.8 g/dL (13.5-17.5); LYMPHOCYTES # (AUTO) 1.1 K/uL (1.0-4.8); LYMPHOCYTES % (AUTO) 16.6 % (22.0-44.0); MEAN CORPUSCULAR HEMOGLOBIN 31.5 pg (26.0-34.0); MEAN CORPUSCULAR HGB CONC 34.2 G/dL (31.0-37.0); MEAN CORPUSCULAR VOLUME 92 fL (80-100); MONOCYTES # (AUTO) 0.7 K/uL (0.1-1.0); MONOCYTES % (AUTO) 10.7 % (2.0-9.0); NEUTROPHILS # (AUTO) 4.6 K/uL (1.8-7.7); NEUTROPHILS % (AUTO) 67.9 % (40.0-70.0); PLATELET COUNT (AUTO) 248 K/uL (150-450); RED BLOOD CELL COUNT(AUTO) 4.39 MIL/uL (4.50-5.90); RED CELL DISTRIBUTION WIDTH 13.7 % (11.5-14.5)
[2018-02-20 17:17] LABS: CALCIUM, TOTAL 8.9 mg/dL (8.8-10.5); CREATININE 1.22 mg/dL (0.60-1.30); POTASSIUM 4.5 mmol/L (3.5-5.1)
[2018-02-20 17:22] LABS: ALBUMIN 3.2 g/dL (3.4-5.0); BILIRUBIN,TOTAL 0.4 mg/dL (0.1-1.0); TOTAL PROTEIN, SERUM 7.6 g/dL (6.4-8.2)
[2018-02-20] MEDS ORDERED: SODIUM CHLORIDE 0.9% 1,000 ML IV ONE (17:30)
[2018-02-20] MEDS ORDERED: VANCOMYCIN HCL 1 GM/D5% WATER 200 ML IV ONE (17:30)
[2018-02-20 17:36] LABS: C-REACTIVE PROTEIN QUANT 5.29 mg/dL (0.00-0.30)
[2018-02-20 18:38] LABS: ERYTHROCYTE SEDIMENTATION RATE 53 MM/HR (0-15)
[2018-02-20] MEDS ORDERED: PERTUSS(ACELL),DIPH,TET VAC/PF 0.5 ML VIAL IM ONE (22:30)
[2018-02-20 23:14] VITALS: BP 125/71
== END 2018-02-21 00:46 | disposition short-term general hospital (02) ==
LOC: EMS 14:20
DX: L03.113 Cellulitis of right upper limb (principal); F32.9 Major depressive disorder, single episode, unspecified; I10 Essential (primary) hypertension; Z86.59 Personal history of other mental and behavioral disorders
CPT/HCPCS: 36415; 73140; 80053; 85025; 85651; 86140; 87040; 87070; 87077; 87186; 87205; 90471; 90715; 96365; 96366; 99285; J3370; J7030